=== PATIENT | female | born 1990 | race Caucasian/White ===

== ENCOUNTER 2018-01-24 07:31 | Outpatient (CLI) | payer MEDICARE ==
[2018-01-24 08:06] LABS: Blood Urea Nitrogen 9 mg/dL (7-17)
[2018-01-24] MEDS ORDERED: NACL ONE (08:31)
--- NOTE | 2018-01-24 11:21 | Cat Scan Report ---
FINAL REPORT EXAM: CT ANGIO NECK HISTORY: OCCLUSION AND STENOSIS OF RIGHT CAROTID ARTERY TECHNIQUE: CTA of the Head and Neck with IV contrast. Coronal and sagittal reconstructed imaging provided. Carotid stenosis calculated by the NASCET method. PRIORS: None currently available. FINDINGS: HEAD: 50-60 percent narrowed ICA is unchanged intracranially. However, just after the genu of the cavernous carotid there is an 80-90 narrowing which continues into the supraclinoid segment. No flow is appreciated in the left A1 and M1 segment. Left A2 segment is fill through a anterior communicating artery. Right anterior circulation appears intact. Dominant left vertebral artery supplies the posterior circulation. Posterior circulation appears relatively unremarkable. NECK: RIGHT CAROTID: Origin: Unremarkable. Common: Unremarkable. Bifurcation: Unremarkable. Internal: Unremarkable. External: Unremarkable. There is no aneurysm, dissection, vascular malformation, or significant vascular stenosis. There is no evidence for vasculitis. LEFT CAROTID: Origin: Unremarkable. Common: Unremarkable. Bifurcation: Unremarkable. Internal: At the proximal portion on series [id number] there is a gradual tapering of the vessel with 50-60 percent narrowing extending into the mid and distal portions. External: Unremarkable. No aneurysm. 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 Dominant left vertebral identified. There is no aneurysm, dissection, vascular malformation, or significant vascular stenosis. There is no evidence for vasculitis. Heterogenous thyroid gland. 11 mm low-density lesion in the right thyroid lobe. Subcentimeter smaller low-density lesions also noted in both lobes. 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 Left craniotomy is also partially imaged. Partially imaged thoracic aorta is grossly unremarkable. No aneurysm or dissection. Major branch vessels are unremarkable. IMPRESSION: Hemodynamically significant stenosis or narrowing at the proximal left ICA continuing into the intracranial portion. Stenosis gas worse just at the genu of the left cavernous carotid. Suspect occlusion of the left A1 and M segments.
== END 2018-01-24 07:32 | disposition home or self-care (01) ==
LOC: CT 07:31
PROVIDERS: ATTEND Surgery Vascular Surgery
DX: I65.21 Occlusion and stenosis of right carotid artery (principal); I67.89 Other cerebrovascular disease; Z98.890 Other specified postprocedural states
CPT/HCPCS: 36415; 70498; 82565; 84520; Q9967